=== PATIENT | male | born 1950 | race Caucasian/White ===

== ENCOUNTER 2024-07-02 07:45 | Outpatient (RCR) | payer MEDICARE, BC, SELFPAY ==
--- NOTE | 2024-06-07 09:09 | PT.OPE ---
PT [facility] PT [facility] Eval Start: 06/04/24 15:03 Freq: Status: Active Protocol: Document 06/04/24 15:03 MARIA LUISA (Rec: 06/04/24 15:05 MARIA LUISA [id number]) E-signed By Jose Campos DPT, MS Physical Therapy Outpatient Evaluation Insurance Information Recert Due Date 09/02/24 Insurance Name Medicare B,[employer] Medical Diagnosis Acute pain of right knee Treating Diagnosis R knee pain, and B (R>L) LE weakness and decreased endurance Subjective Preferred Name Esequiel Ferrer Pt is a 74 y.o. male who presents to PT with c/o acute onset of R knee pain 3 weeks ago while getting out of a low recliner. Twisted his R knee with immediate sharp pain with minimal swelling. Sxs intensity has improved but it remains sore and painful with squatting, stair climbing and kneeling with his R LE. Denies knee locking or catching. Has returned to walking his huynh retriever but hills and longer distances remain challenging. Hopes to return to playing with his 1 y.o. granddaughter and walking with minimal pain. Denies locking and catching. PMH includes high cholesterol. AGGR factors : stair climbing (down>up), squatting, kneeling, sleeping, carrying objects, descending hills. ALLEV factors: rest, ice. Pain Comments 2-3/ Current Work Status Retired Precautions Therapy Limitations/Systems Review Not Limited Objective Functional Test Performed & Score LEFS: 22 Assessment Assessment/Impression Objectively pt displays decreased R LE flexibility, B (R>L) LE weakness and decreased endurance. No signs or symptoms of a R meniscus tear with testing with sx recreation with palpation of his R distal ITB. R hamstring tightness combined with R glute and quad weakness appears to be contributing to sxs. Symmetrical B knee ROM. Negative meniscus testing with no observable or palpable edema. Good response to stretching and LE strengthening exercises with fatigue and decreased knee sxs following. Emphasized importance of not pushing into elevations in sxs or fatigue. He will benefit from continued skilled therapy to address these limitations. Primary Functional Limitations Stair climbing (down>up), squatting, kneeling, carrying objects, descending hills. Plan of Care Rehabilitation Potential Excellent Physical Therapy Goals Short-term therapy goals to be completed in 4 weeks: 1. Pt will display improved R LE strength as evidenced by performing >10 SLR of good quality to improve quality of gait. 2. Pt will report improved quality of sleep waking <2x per night due to R knee pain. Long-term therapy goals to be completed in 10 weeks: 1. 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 2. Pt will display improved B ABD and ext strength of 5/5 to improve tolerance to exercise and work activities. 3. 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 4. Pt will be able to return to walking >10 minutes with no elevation in R knee sxs to maintain cardiovascular health . 5. Pt will report >50% improvement in LEFS questionnaire to significantly improve nia to daily activities. Coordination/Communication With Referral Source Treatment Plan/Direct Interventions Joint Mobilization,Manual Therapy,Neuromuscular Re-ed, Therapeutic Exercises Frequency/Duration 1x per week for at least 6-10 visits Patient Will Be Discharged From Therapy Completion of LTG(s),Skills Plateau,Independent w/HEP, Independently Progressing Evaluation Billing Untimed Code Treatment Minutes 26 Complexity Moderate Certification Information Initial Certification Date 06/04/24 Ending Certification Date 09/02/24 Provider Signature Required Yes Provider Signature Shows Agreement With POC & Medical Necessity Physician NPI Number Write NPI# Here Physician Comment/Change : Physician Signature & Date Requested Please Sign/Date Here
== END 2024-08-25 07:52 | disposition home or self-care (01) ==
PROVIDERS: PCP Family Medicine; Visit Provider Family Medicine
DX: M25.561 Pain in right knee (principal); Z51.89 Encounter for other specified aftercare
CPT/HCPCS: 97110; 97140; 97162